=== PATIENT | female | born 1940 | race Two or more races ===

== ENCOUNTER → 2019-10-26 | Outpatient (CLI) | payer OTHER | END | disposition home or self-care (01) | LOC: NUCLEAR 10:00 | PROVIDERS: ATTEND Internal Medicine Rheumatology | DX: I82.492 Acute embolism and thrombosis of other specified deep vein of left lower extremity (principal) ==

== ENCOUNTER → 2019-10-27 | Outpatient (CLI) | payer OTHER | END | disposition home or self-care (01) | LOC: NUCLEAR 15:21 | PROVIDERS: ATTEND Internal Medicine Rheumatology | DX: I77.1 Stricture of artery (principal); I73.9 Peripheral vascular disease, unspecified ==